=== PATIENT | male | born 1945 | race Caucasian/White ===

== ENCOUNTER 2019-04-07 10:37 | Inpatient (IN) | payer MEDICARE ==
--- NOTE | 2019-04-07 10:35 | US ---
EXAMINATION TYPE: US venous doppler duplex LE LT DATE OF EXAM: 04/07/2019 10:19 AM COMPARISON: NONE CLINICAL HISTORY: 73-year-old male R22.42 Swelling left lower limb. SIDE PERFORMED: Left TECHNIQUE: The lower extremity deep venous system is examined utilizing real time linear array sonog radha with graded compression, doppler sonography and color-flow sonography. FINDINGS: VESSELS IMAGED: External Iliac Vein (EIV) Common Femoral Vein Deep Femoral Vein Greater Saphenous Vein * Femoral Vein Popliteal Vein Small Saphenous Vein * Proximal Calf Veins (* superficial vessels) Left Leg: Positive for DVT starting at the confluence of the femoral and deep femoral vein and exten ding down through the proximal calf veins. Degreaser notes: Gave results to ERASMO Triana, who directed that the patient be sent to the ER. So wa lked patient to ER. IMPRESSION: Exam positive for left lower extremity DVT extending from the confluence of the superficial and deep femoral veins down into the proximal calf veins.
[2019-04-07] MEDS ORDERED: HEPARIN SODIUM,PORCINE 10,000 UNIT/ML 1 ML VIAL IV ONE (11:15)
[2019-04-07] MEDS ORDERED: SODIUM CHLORIDE 0.9% 1,000 ML IV ONE (11:15)
[2019-04-07] MEDS ORDERED: HEPARIN SODIUM,PORCINE 5,000 UNIT/ML 1 ML VIAL IV PRN (11:15)
--- NOTE | 2019-04-07 11:23 | ED ---
General Adult HPI - General Chief complaint: Extremity Problem,Nontraumatic Stated complaint: positive for DVT Time Seen by Provider: 04/07/19 10:58 Source: patient, RN notes reviewed, old records reviewed Mode of arrival: ambulatory Limitations: no limitations - History of Present Illness Initial comments: Patient is a 73-year-old male presents with his son. He presents today with complaints of left lower leg swelling. He was seen by his PCP, and was sent for an outpatient ultrasound. Patient was sent directly here after results with HER POSITIVE FOR DVT. HE IS A NONSMOKER. DENIES ANY TRAVEL HISTORY. PATIENT STATES THAT HE IS HAD A BLOOD CLOT BEFORE. HE DENIES ANY CHEST PAIN OR SHORTNESS OF BREATH. - Related Data Allergies Allergy/AdvReac Type Severity Reaction Status Date / Time No Known Allergies Allergy Verified 04/07/19 10:50 Review of Systems ROS Statement: Those systems with pertinent positive or pertinent negative responses have been documented in the HPI. ROS Other: All systems not noted in ROS Statement are negative. Past Medical History Past Medical History: Hyperlipidemia, Hypertension Additional Past Medical History / Comment(s): non compliant with medications Past Surgical History: Hernia Repair Past Psychological History: No Psychological Hx Reported Smoking Status: Never smoker Past Alcohol Use History: Rare Past Drug Use History: None Reported General Exam - General Exam Comments Initial Comments: Patient is a 73-year-old male. Alert and oriented. No distress. Limitations: no limitations General appearance: alert, in no apparent distress Head exam: Present: atraumatic, normocephalic, normal inspection Eye exam: Present: normal appearance, PERRL, EOMI. Absent: scleral icterus, conjunctival injection, periorbital swelling ENT exam: Present: normal exam, mucous membranes moist Neck exam: Present: normal inspection. Absent: tenderness, meningismus, lymphadenopathy Respiratory exam: Present: normal lung sounds bilaterally. Absent: respiratory distress, wheezes, rales, rhonchi, stridor Cardiovascular Exam: Present: regular rate, normal rhythm, normal heart sounds. Absent: systolic murmur, diastolic murmur, rubs, gallop, clicks GI/Abdominal exam: Present: soft, normal bowel sounds. Absent: distended, tenderness, guarding, rebound, rigid Extremities exam: Present: normal inspection, full ROM, normal capillary refill. Absent: tenderness, pedal edema, joint swelling, calf tenderness Left Knee exam: Present: normal inspection, full ROM Lower Leg exam: Present: normal inspection, swelling, palpable cord. Absent: tenderness Ankle exam: Present: normal inspection, full ROM Foot/Toe exam: Present: normal inspection, full ROM Neurovascular tendon exam: Present: no vascular compromise Gait: observed and normal Back exam: Present: normal inspection, full ROM Neurological exam: Present: alert, oriented X3, CN II-XII intact Course Vital Signs 04/07/19 04/07/19 10:47 12:14 Temperature 98.2 F Pulse Rate 85 Respiratory 18 16 Rate Blood Pressure 150/96 O2 Sat by Pulse 95 Oximetry Medical Decision Making - Medical Decision Making Patient is a 73-year-old male presents with 2 weeks of left sternal any swelling. No provoking factors including travel to be onset of DVT. He had an outpatient ultrasound is positive for extensive DVT from the superficial and deep femoral veins down to the proximal calf veins. Patient denies any chest pain or shortness of breath. His leg is twice the size of the right leg. He has a palpable dorsalis pedis pulse. Patient was initiated high intensity heparin. Examined the Patient with Dr. Parmar. Recommends with the extensive swelling of patient's leg a little bit the Patient started him on a high intensity heparin. Denisse Guthrie Discussed case with Dr. Wong. - Lab Data Result diagrams: 04/07/19 11:36 04/07/19 11:36 Lab Results 04/07/19 04/07/19 04/07/19 Range/Units 11:36 11:36 11:36 WBC 6.5 (3.8-10.6) k/uL RBC 5.04 (4.30-5.90) m/uL Hgb 15.6 (13.0-17.5) gm/dL Hct 47.6 (39.0-53.0) % MCV 94.4 (80.0-100.0) fL MCH 31.0 (25.0-35.0) pg MCHC 32.9 (31.0-37.0) g/dL RDW 12.5 (11.5-15.5) % Plt Count 233 (150-450) k/uL Neutrophils % 65 % Lymphocytes % 23 % Monocytes % 7 % Eosinophils % 2 % Basophils % 1 % Neutrophils # 4.2 (1.3-7.7) k/uL Lymphocytes # 1.5 (1.0-4.8) k/uL Monocytes # 0.5 (0-1.0) k/uL Eosinophils # 0.1 (0-0.7) k/uL Basophils # 0.1 (0-0.2) k/uL PT 10.4 (9.0-12.0) sec INR 1.0 (<1.2) APTT 25.5 (22.0-30.0) sec Sodium 137 (137-145) mmol/L Potassium 4.3 (3.5-5.1) mmol/L Chloride 102 (98-107) mmol/L Carbon Dioxide 24 (22-30) mmol/L Anion Gap 11 mmol/L BUN 23 H (9-20) mg/dL Creatinine 0.79 (0.66-1.25) mg/dL Est GFR (CKD-EPI)AfAm >90 (>60 ml/min/1.73 sqM) Est GFR (CKD-EPI)NonAf 89 (>60 ml/min/1.73 sqM) Glucose 210 H (74-99) mg/dL Calcium 9.5 (8.4-10.2) mg/dL - Radiology Data Radiology results: report reviewed Ultrasound is positive for DVT in left lower extremity setting from the confluence of the superficial and deep femoral veins down to the proximal calf veins. Disposition Clinical Impression: DVT (deep venous thrombosis), Left leg swelling Disposition: ADMITTED IP TO THIS [facility] Condition: Stable Is patient prescribed a controlled substance at d/c from ED?: No Referrals: Cory Vanegas MD [Primary Care Provider] - 1-2 days Time of Disposition: 12:25
[2019-04-07 11:56] LABS: Partial Thromboplastin Time 25.5 sec (22.0-30.0); Prothrombin Time 10.4 sec (9.0-12.0)
[2019-04-07 12:01] LABS: Basophils # (A) 0.1 k/uL (0-0.2); Basophils % (A) 1 %; Eosinophils # (A) 0.1 k/uL (0-0.7); Eosinophils % (A) 2 %; HCT 47.6 % (39.0-53.0); HGB 15.6 gm/dL (13.0-17.5); Lymphocytes # (A) 1.5 k/uL (1.0-4.8); Lymphocytes % (A) 23 %; MCHC 32.9 g/dL (31.0-37.0); MCV 94.4 fL (80.0-100.0); Mean Platelet Volume 7.1; Monocytes # (A) 0.5 k/uL (0-1.0); Monocytes % (A) 7 %; Neutrophils # (A) 4.2 k/uL (1.3-7.7); Neutrophils % (A) 65 %; Platelet Count 233 k/uL (150-450); RBC 5.04 m/uL (4.30-5.90); RDW 12.5 % (11.5-15.5); WBC 6.5 k/uL (3.8-10.6)
[2019-04-07] MEDS: HEPARIN SOD,PORK IN 0.45% NACL 25,000 UNIT in 0.45% NACL 1 250ML.BAG IV SCH (12:04)
[2019-04-07 12:06] LABS: African American GFR (CKD) >90 (>60 ml/min/1.73 sqM); Anion Gap 11 mmol/L; Blood Urea Nitrogen 23 mg/dL (9-20); Calcium 9.5 mg/dL (8.4-10.2); Carbon Dioxide 24 mmol/L (22-30); Chloride 102 mmol/L (98-107); Glucose 210 mg/dL (74-99); Potassium 4.3 mmol/L (3.5-5.1); Sodium 137 mmol/L (137-145)
[2019-04-07] MEDS ORDERED: IBUPROFEN 400 MG TAB PO PRN (12:26)
[2019-04-07] MEDS ORDERED: NALOXONE 0.4 MG/ML 1 ML VIAL IV PRN ×2 (12:26→13:43)
[2019-04-07] MEDS ORDERED: Acetaminophen-Codeine 300-30mg TAB PO PRN (12:26)
[2019-04-07] MEDS ORDERED: ONDANSETRON 4 MG/2 ML VIAL IVP PRN (12:26)
[2019-04-07] MEDS ORDERED: MORPHINE SULFATE 4 MG/ML SYRINGE IV PRN (12:26)
[2019-04-07] MEDS ORDERED: ACETAMINOPHEN TAB 325 MG TAB PO PRN (12:26)
[2019-04-07] MEDS ORDERED: hydrALAZINE HCL 20 MG/ML 1 ML VIAL IVP STA (13:31)
--- NOTE | 2019-04-07 13:47 | P.HPIM ---
History of Present Illness H&P Date: 04/07/19 Chief Complaint: The left leg swelling and pain The patient is a 73-year-old male with a past medical history of essential hypertension, type 2 diabetes reportedly diet controlled who presented to the ER via private vehicle with chief complaint of left lower extremity swelling and pain. Apparently the patient began having pain and swelling in the right knee approximately 2 weeks ago which has progressed down his leg with worsening swelling and some redness and pain within the last week, the patient denies any recent travel, denies recent surgeries, denies any history of cancer, he denies chest pain or shortness of breath. Apparently the patient previously had a DVT The patient reports he was recently prescribed medication for his blood pressure but he has yet to pick them up from [facility] pharmacy, the patient did make attempt to call his pharmacy to figure out what medication was prescribed but apparently the pharmacy did not receive the prescription, patient also attempted to contact his doctors office however it was closed today. In the ER the patient had a comprehensive workup including left venous Doppler that showed a positive DVT starting of the confluence of the femoral and deep femoral vein and extending down to the proximal calf veins. PT INR 10.4 and 1, serum sodium 137, serum potassium 4.3, bicarb 24, BUN 23 creatinine 0.79, blood sugar 210 the patient was started on IV heparin protocol recommended for admission Review of Systems Pertinent positives per HPI review of systems otherwise negative Past Medical History Past Medical History: Hyperlipidemia, Hypertension Additional Past Medical History / Comment(s): non compliant with medications Past Surgical History: Hernia Repair Past Psychological History: No Psychological Hx Reported Smoking Status: Never smoker Past Alcohol Use History: Rare Past Drug Use History: None Reported Medications and Allergies Home Medications Medication Instructions Recorded Confirmed Type No Known Home Medications 04/07/19 04/07/19 History Allergies Allergy/AdvReac Type Severity Reaction Status Date / Time No Known Allergies Allergy Verified 04/07/19 12:40 Physical Exam Vitals: Vital Signs Temp Pulse Resp BP Pulse Ox 04/07/19 12:48 97.3 F L 69 16 180/93 96 04/07/19 12:14 16 04/07/19 10:47 98.2 F 85 18 150/96 95 Intake and Output 04/06/19 04/07/19 04/07/19 22:59 06:59 14:59 Other: Weight 97.976 kg Constitutional: No acute distress, conversant, pleasant Eyes: Anicteric sclerae, moist conjunctiva, no lid-lag, PERRLA ENMT: NC/AT,Oropharynx clear, no erythema, exudates Neck:Supple, FROM, no masses, or JVD, No carotid bruits; No thyromegaly Lungs: Clear to auscultation, Clear to percussion, Normal respiratory effort, no accessory muscle use Cardiovascular: Heart regular in rate and rhythm, No murmurs, gallops, or rubs no peripheral edema Abdominal: Soft Nontender, nom distended, no guarding, no rebound or rigidity, Normoactive bowel sounds No hepatomegaly, No splenomegaly, No palpable mass No abdominal wall hernia noted Skin: Normal temperature, tone, texture, turgor, No induration No subcutaneous nodules, No rash, lesions, No ulcers Extremities: Right lower extremity calf size 16.5 inches, left lower extremity calf size 19 inches with noted swelling and erythema Psychiatric: Alert and oriented to person, place and time, Appropriate affect Intact judgement Neuro: Muscles Strength 5/5 in all 4 extremities, Sensation to light touch grossly present throughout, Cranial nerves II-XII grossly intact. No focal sensory deficits Results CBC & Chem 7: 04/07/19 11:36 04/07/19 11:36 Labs: Abnormal Lab Results - Last 24 Hours (Table) 04/07/19 Range/Units 11:36 BUN 23 H (9-20) mg/dL Glucose 210 H (74-99) mg/dL Assessment and Plan (1) Recurrent deep vein thrombosis (DVT) Current Visit: Yes Status: Acute Code(s): I82.409 - ACUTE EMBOLISM AND THOMBOS UNSP DEEP VN UNSP LOWER EXTREMITY SNOMED Code(s): 071042194 (2) Essential hypertension Current Visit: Yes Status: Acute Code(s): I10 - ESSENTIAL (PRIMARY) HYPERTENSION SNOMED Code(s): 30379095 (3) Type 2 diabetes mellitus with hyperglycemia Current Visit: Yes Status: Acute Code(s): E11.65 - TYPE 2 DIABETES MELLITUS WITH HYPERGLYCEMIA SNOMED Code(s): 641789049965417 (4) Medical non-compliance Current Visit: Yes Status: Acute Code(s): Z91.19 - PATIENT'S NONCOMPLIANCE W OTH MEDICAL TREATMENT AND REGIMEN SNOMED Code(s): 883143714 Plan: Patient is placed on observation anticipated less than 2 midnight stay with acute recurrent left lower extremity DVT that is apparently unprovoked hematology consulted for further workup the patient is continued on heparin per protocol. Hopefully the patient be transitioned to DOAC within the next 24 hours. Patient's blood pressures also noted to be elevated, he is given a dose of hydralazine and started on chlorthalidone. A1c is also ordered Accu-Cheks with correctional scale coverage in place . We'll continue to monitor his clinical course. CODE STATUS: Full code Anticipated discharge: 1-2 days Discussed plan of care with: Patient
[2019-04-07] MEDS: CHLORTHALIDONE 25 MG TAB PO SCH (17:14)
[2019-04-07 17:33] LABS: Glucose,Whole Blood 221 mg/dL (75-99)
[2019-04-07 17:44] LABS: Appearance,Urine Clear (Clear); Bilirubin,Urine Negative (Negative); Blood,Urine Negative (Negative); Color,Urine Yellow; Glucose,Urine (UA) 4+ (Negative); Ketones,Urine Trace (Negative); Leukocyte Esterase,Urine Negative (Negative); Nitrite,Urine Negative (Negative); PH, Urine 5.5 (5.0-8.0); Protein,Urine Negative (Negative); Specific Gravity,Urine 1.016 (1.001-1.035); Urobilinogen,Urine <2.0 mg/dL (<2.0)
[2019-04-07 20:36] LABS: Glucose,Whole Blood 180 mg/dL (75-99)
[2019-04-07 22:23] LABS: Hemoglobin A1C 10.5 % (4.0-6.0)
--- NOTE | 2019-04-07 23:13 | P.CONS ---
History of Present Illness - Reason for Consult Consult date: 04/07/19 unprovoked DVT Requesting physician: Hubert Townsend - Chief Complaint Left Lower Leg Swelling - History of Present Illness Mr. Leyva is a pleasant 73 year old male patient who has a known history of DM, HTN, and arthritis who presents to emergency with complains of pain and swelling in his left lower extremity noticed approximately 3-4 days prior. He denies any trauma, long travels, or sedetary lifestyle. He denies a personal history of cancer. Denies any recent weight gain or loss, no changes in bowels or bladder,denies shortness of breath or chest pain. He denies any prior thrombolic events, no known family history of thrombolic events. He has had only one colonoscopy, denies regular preventative doctor visits. During evaluation in emergency a lower extremity doppler revealed LEFT lower extremity DVT. He was started on heparin drip and admitted. It is unclear if he has had a prior thrombus, per my discussion today he denied any prior DVT, although medical chart states he has admitted to prior DVT. We discussed further evaluation for etiology of DVT, a written prescition for hypercaguable work-up was given for him to obtain at discharge. He will be discharged on DOAC if approved under insurance (unclear if he has coverage for medications, will need clarification of this prior to dicharge and will need to ensure patient has anticoagulation therapy filled prior to discharge. Review of Systems A 14 point review of systems assessed and completed and all negative except HPI Past Medical History Past Medical History: Hyperlipidemia, Hypertension Additional Past Medical History / Comment(s): non compliant with medications Past Surgical History: Hernia Repair Past Psychological History: No Psychological Hx Reported Smoking Status: Never smoker Past Alcohol Use History: Rare Past Drug Use History: None Reported - Past Family History Sister(s) Family Medical History: Diabetes Mellitus Medications and Allergies Home Medications Medication Instructions Recorded Confirmed Type No Known Home Medications 04/07/19 04/07/19 History Allergies Allergy/AdvReac Type Severity Reaction Status Date / Time No Known Allergies Allergy Verified 04/07/19 12:40 Physical Exam Vitals: Vital Signs Temp Pulse Resp BP Pulse Ox 04/07/19 15:00 97.6 F 86 16 150/75 97 04/07/19 14:00 72 04/07/19 12:48 97.3 F L 69 16 180/93 96 04/07/19 12:14 16 04/07/19 10:47 98.2 F 85 18 150/96 95 Intake and Output 04/07/19 04/07/19 04/07/19 06:59 14:59 22:59 Other: Weight 97.976 kg Gen: Alert and oriented, NAD Head: NCNTNeck: Supple Heart: Tachy, reg Lungs: CTA no increased effort Abd: Soft, NDNT Extremities: LLE Edema Neuro: no sensory or motor deficits Results CBC & Chem 7: 04/07/19 11:36 04/07/19 11:36 Labs: Abnormal Lab Results - Last 24 Hours (Table) 04/07/19 Range/Units 11:36 BUN 23 H (9-20) mg/dL Glucose 210 H (74-99) mg/dL Venous US: report reviewed Assessment and Plan Plan: Assessment and Recommendations: NEw Acute Unprovoked DVT LLE: - Hypercoaguable work-up RX provided to patient to obtain after discharge, will follow-up in office - Unclear if first or second event, ? to patient as a good historian - DOAC at discharge if able to obtain, he is anxious for discharge as daughter is visiting from out of state. Education on the importance of anticagulation therapy prior to discharge. - Follow-up with Dr. Melendez in 3-4 weeks to review length of recommended therapy and hypercoag evaluation - Re-education and recommendations for adherence to preventative medicine check ups
[2019-04-08 02:24] LABS: Basophils # (A) 0.1 k/uL (0-0.2); Basophils % (A) 1 %; Eosinophils # (A) 0.4 k/uL (0-0.7); Eosinophils % (A) 6 %; HCT 42.4 % (39.0-53.0); HGB 13.5 gm/dL (13.0-17.5); Lymphocytes # (A) 2.5 k/uL (1.0-4.8); Lymphocytes % (A) 35 %; MCH 30.3 pg (25.0-35.0); MCHC 31.9 g/dL (31.0-37.0); Monocytes # (A) 0.5 k/uL (0-1.0); Monocytes % (A) 7 %; Neutrophils # (A) 3.5 k/uL (1.3-7.7); Neutrophils % (A) 48 %; Platelet Count 230 k/uL (150-450); RBC 4.46 m/uL (4.30-5.90); RDW 12.7 % (11.5-15.5); WBC 7.2 k/uL (3.8-10.6)
[2019-04-08 03:01] LABS: ALT 29 U/L (21-72); AST 27 U/L (17-59); African American GFR (CKD) >90 (>60 ml/min/1.73 sqM); Albumin 3.7 g/dL (3.5-5.0); Alkaline Phosphatase 58 U/L (38-126); Anion Gap 8 mmol/L; Blood Urea Nitrogen 20 mg/dL (9-20); Calcium 8.9 mg/dL (8.4-10.2); Carbon Dioxide 23 mmol/L (22-30); Chloride 104 mmol/L (98-107); Glucose 183 mg/dL (74-99); Sodium 135 mmol/L (137-145); Total Bilirubin 0.6 mg/dL (0.2-1.3); Total Protein 6.5 g/dL (6.3-8.2)
[2019-04-08] MEDS: HEPARIN SOD,PORK IN 0.45% NACL 25,000 UNIT in 0.45% NACL 1 250ML.BAG IV SCH (03:52)
[2019-04-08 06:13] VITALS: BP 146/81; PULSE 74; RESP 18; TEMP 97.8
[2019-04-08 07:07] LABS: Glucose,Whole Blood 192 mg/dL (75-99)
[2019-04-08] MEDS ORDERED: INSULIN ASPART (NovoLOG) 100 UNIT/ML VIAL SQ SCH (07:30)
[2019-04-08] MEDS: CHLORTHALIDONE 25 MG TAB PO SCH (07:51)
[2019-04-08] MEDS ORDERED: PANTOPRAZOLE 40 MG/10 ML VIAL IV SCH (09:00)
[2019-04-08] MEDS ORDERED: APIXABAN 5 MG TAB PO SCH (09:00)
[2019-04-08] MEDS ORDERED: LISINOPRIL 20 MG TAB PO SCH (09:00)
--- NOTE | 2019-04-08 10:56 | P.DS ---
Providers Date of admission: 04/07/19 13:43 Expected date of discharge: 04/08/19 Attending physician: Hubert Townsend MD Consults: 04/07/19 13:17 Consult Physician Routine Consulting Provider: Bobby Mcclellan Consult Reason/Comments: unprovoked DVT Do you want consulting provider notified?: Yes Primary care physician: Cory Vanegas - Discharge Diagnosis(es) (1) Deep vein thrombosis (DVT) of left lower extremity Current Visit: Yes Status: Acute (2) Essential hypertension Current Visit: Yes Status: Acute (3) Type 2 diabetes mellitus with hyperglycemia Current Visit: Yes Status: Acute (4) Medical non-compliance Current Visit: Yes Status: Acute Hospital Course: The patient is a 73-year-old male that was admitted with acute left lower extremity DVT after presenting with left leg swelling and pain, left lower extremity venous Doppler was positive For DVT extending from the confluence of the superficial and deep femoral veins down to the proximal calf veins. The patient was started on heparin drip per protocol and hematology was consulted for further workup of the unprovoked DVT. The patient was transient to direct oral anticoagulation with ELiquis. The patient reported a history of type 2 diabetes for quite some time and informed me that he was attempting diet and exercise to manage his diabetes despite recommendations [facility] . A1c here was 10.1 . Patient was told to be hyperglycemic. The patient appears to have a medical history of noncompliance as he also had not started his blood pressure medications. The patient reports previously having diabetic education and requested oral diabetic regimen despite my recommendations for subcutaneous insulin and reported that he would not be able to take SQ insulin at this time. The patient reported having a glucometer and testing supplies. He was given correctional scale insulin coverage here and subsequently discharged home on Janumet 100/1000 mg PO BID. the patient is instructed to test 4 times a day and bring his numbers to his primary care physician. He was started on chlorthalidone and lisinopril for his blood pressure. The patient was given an order for hypercoagulable workup by oncology and was subsequently discharged home in stable condition with instructions to follow-up with his PCP in 2-5 days. This discharge process took approximately 35 minutes focused exam extremities : Extremities: Right lower extremity calf size 16.5 inches, left lower extremity calf size 19 inches with noted swelling and erythema Patient Condition at Discharge: Stable Plan - Discharge Summary Discharge Rx Participant: No New Discharge Prescriptions: New Apixaban [Eliquis] 5 mg PO BID #60 tab Chlorthalidone [Hygroton] 25 mg PO DAILY #30 tab Lisinopril [Zestril] 40 mg PO DAILY #30 tab sitaGLIPtin PHOS/metFORMIN HCL [Janumet Xr 100-1,000 mg Tablet] 1 each PO BID #60 tbmp.24hr Discharge Medication List Apixaban [Eliquis] 5 mg PO BID #60 tab 04/08/19 [Rx] Chlorthalidone [Hygroton] 25 mg PO DAILY #30 tab 04/08/19 [Rx] Lisinopril [Zestril] 40 mg PO DAILY #30 tab 04/08/19 [Rx] sitaGLIPtin PHOS/metFORMIN HCL [Janumet Xr 100-1,000 mg Tablet] 1 each PO BID #60 tbmp.24hr 04/08/19 [Rx] Follow up Appointment(s)/Referral(s): Cory Vanegas MD [Primary Care Provider] - 1-2 days Patient Instructions/Handouts: Deep Vein Thrombosis (DC), Type 2 Diabetes in Adults: New Diagnosis (DC) Discharge Disposition: HOME SELF-CARE
== END 2019-04-08 11:02 | disposition home or self-care (01) | DRG 301 ==
LOC: EC 10:37 → OBSVTOIN 13:43 → UNDOADMIN 13:43 → INTOOBSV 13:43 → 4MS4W 13:43 → UNDODISOB 04-08 11:02
PROVIDERS: ADMIT Family Medicine; ATTEND Family Medicine
DX: I82.412 Acute embolism and thrombosis of left femoral vein (principal); E11.65 Type 2 diabetes mellitus with hyperglycemia; E78.5 Hyperlipidemia, unspecified; I10 Essential (primary) hypertension; Z83.3 Family history of diabetes mellitus; Z86.718 Personal history of other venous thrombosis and embolism; Z91.19 Patient's noncompliance with other medical treatment and regimen; T50.906A Underdosing of unspecified drugs, medicaments and biological substances, initial encounter; Z91.120 Patient's intentional underdosing of medication regimen due to financial hardship; M19.90 Unspecified osteoarthritis, unspecified site
CPT/HCPCS: 36415; 80048; 80053; 81003; 83036; 85025; 85610; 85730; 96365; 96366; 96375; 96376; 99284

== ENCOUNTER → 2019-04-21 | Outpatient (CLI) | payer MEDICARE ==
[2019-04-21 17:40] LABS: Cardiolipin Ab IgA Interp NEGATIVE (NEGATIVE); Cardiolipin Ab IgG Interp NEGATIVE (NEGATIVE); Cardiolipin Ab IgM Interp NEGATIVE (NEGATIVE); Cardiolipin IgA Antibody 0.9 U/mL; Cardiolipin IgM Antibody 0.5 U/mL
== END | disposition home or self-care (01) ==
LOC: LABWHC1 08:22
PROVIDERS: ATTEND Nurse Practitioner Adult Health
DX: D68.51 Activated protein C resistance (principal); D68.52 Prothrombin gene mutation
CPT/HCPCS: 36415; 85300; 85303; 85306; 85613; 85730; 86147

== ENCOUNTER 2025-01-10 13:28 | Emergency (ER) | payer OTHER, MEDICARE ==
[2025-01-10 13:35] VITALS: TEMP 97.5
[2025-01-10 14:09] VITALS: BP 162/84; PULSE 91; RESP 20
--- NOTE | 2025-01-10 14:09 | ED ---
Extremity Problem HPI - General Chief complaint: Extremity Problem,Nontraumatic Stated complaint: L leg swelling Time Seen by Provider: 01/10/25 14:08 Source: patient Mode of arrival: ambulatory Limitations: no limitations - History of Present Illness Initial comments: 79-year-old male sent from outpatient ultrasound for evaluation of abnormal ultrasound. Patient reports for about a week he has noticed swelling to his left lower extremity. He followed up with his PCP who ordered ultrasound which was completed today. Patient was sent from outpatient ultrasound for positive DVT to left lower extremity. Patient does report a history of DVTs but is not currently on a blood thinner. He is unsure which blood thinner he was on in the past. He does take a baby aspirin daily. He denies any recent travel or smoking history. He denies any chest pain, shortness of breath or palpitations. No injuries to left lower extremity. No other complaints. - Related Data Previous Rx's Medication Instructions Recorded Apixaban [Eliquis] 5 mg PO BID #60 tab 04/08/19 Chlorthalidone [Hygroton] 25 mg PO DAILY #30 tab 04/08/19 glipiZIDE XL [Glucotrol XL] 10 mg PO DAILY #30 tab 04/08/19 lisinopriL [Zestril] 40 mg PO DAILY #30 tab 04/08/19 metFORMIN HCL [Glucophage] 1,000 mg PO BID #60 tab 04/08/19 Rivaroxaban InitiationDose-VTE 15 mg PO BID 21 Days #42 tab 01/10/25 [Xarelto Initiation Dosing for VTE Treatment] Allergies Allergy/AdvReac Type Severity Reaction Status Date / Time No Known Allergies Allergy Verified 04/07/19 12:40 Review of Systems ROS Statement: Those systems with pertinent positive or pertinent negative responses have been documented in the HPI. ROS Other: All systems not noted in ROS Statement are negative. Past Medical History Past Medical History: Hyperlipidemia, Hypertension Additional Past Medical History / Comment(s): non compliant with medications History of Any Multi-Drug Resistant Organisms: None Reported Past Surgical History: Hernia Repair Past Anesthesia/Blood Transfusion Reactions: No Reported Reaction Past Psychological History: No Psychological Hx Reported Smoking Status: Never smoker Past Alcohol Use History: Rare Past Drug Use History: None Reported - Past Family History Sister(s) Family Medical History: Diabetes Mellitus General Exam Limitations: no limitations General appearance: alert, in no apparent distress Respiratory exam: Present: normal lung sounds bilaterally. Absent: respiratory distress, wheezes, rales, rhonchi, stridor Cardiovascular Exam: Present: regular rate, normal rhythm, normal heart sounds. Absent: systolic murmur, diastolic murmur, rubs, gallop, clicks Extremities exam: Present: normal inspection, full ROM, normal capillary refill, calf tenderness (left) Neurological exam: Present: alert, oriented X3, CN II-XII intact Skin exam: Present: warm, dry, intact, normal color. Absent: rash Course Vital Signs 01/10/25 01/10/25 13:32 14:08 Temperature 97.5 F L Pulse Rate 105 H 91 Respiratory 18 20 Rate Blood Pressure 162/84 O2 Sat by Pulse 96 Oximetry Medical Decision Making - Medical Decision Making Was pt. sent in by a medical professional or institution (, [place], [employer] [facility], urgent care, hospital, or skilled nursing...) When possible be specific @ -Patient sent by outpatient ultrasound for evaluation of left lower extremity DVT. Did you speak to anyone other than the patient for history (EMS, parent, family, police, friend...)? What history was obtained from this source @ -Patient's , bedside, aiding in HPI and past medical history. Did you review nursing and triage notes (agree or disagree)? Why? @ -I reviewed and agree with nursing and triage notes Were old charts reviewed (outside hosp., previous admission, EMS record, old EKG, old radiological studies, urgent care reports/EKG's, skilled nursing records)? Report findings @ -Ultrasound venous Doppler left lower extremity completed on 01 10 25 showing a DVT from CFV to upper calf veins. Differential Diagnosis (chest pain, altered mental status, abdominal pain women, abdominal pain men, vaginal bleeding, weakness, fever, dyspnea, syncope, headache, dizziness, GI bleed, back pain, seizure, CVA, palpatations, mental health, musculoskeletal)? @ -Differential Musculoskeletal :Muscular strain, contusion, ligament sprain, fracture, arthritis, septic arthritis, bursitis, cellulitis, muscle spasm, nerve compression, DVT, arterial occlusion, herpes zoster, electrolyte abnormality, tumor.... This is not meant to be in all inclusive list EKG interpreted by me (3pts min.). @ -None done X-rays interpreted by me (1pt min.). @ -None done CT interpreted by me (1pt min.). @ -None done U/S interpreted by me (1pt. min.). @ -None done What testing was considered but not performed or refused? (CT, X-rays, U/S, labs)? Why? @ -None What meds were considered but not given or refused? Why? @ -Basic laboratory studies refused by patient Did you discuss the management of the patient with other professionals (professionals i.e. , [place], [employer] [facility], lab, RT, psych nurse, child welfare social worker, warehouse sorter, teacher, patient transport officer, [employer]er shoe [employer])? Give summary @ -Case management provided xarelto coupon. Was smoking cessation discussed for >3mins.? @ -No Was critical care preformed (if so, how long)? @ -No Were there social determinants of health that impacted care today? How? (Homelessness, low income, unemployed, alcoholism, drug addiction, transportation, low edu. Level, literacy, decrease access to med. care, care home, rehab)? @ -No Was there de-escalation of care discussed even if they declined (Discuss DNR or withdrawal of care, Hospice)? DNR status @ -No What co-morbidities impacted this encounter? (DM, HTN, Smoking, COPD, CAD, Cancer, CVA, ARF, Chemo, Hep., AIDS, mental health diagnosis, sleep apnea, morbid obesity)? @ -None Was patient admitted / discharged? Hospital course, mention meds given and route, prescriptions, significant lab abnormalities, going to OR and other per tinent info. @ -Discharge. 79-year-old male presented the ER for evaluation of abnormal ultrasound. Upon rooming, history and physical exam completed. Vitals within acceptable limits. Patient in no signs of acute distress nontoxic-appearing. Left lower extremity is neurovascularly intact. Positive left Ilana signs. Ultrasound reviewed from 01-10-25 show any DVT of left lower extremity for which patient will be started on Eliquis, coupon provided. Patient was discharged on Eliquis but return to the emergency department as medication was too expensive. As patient was on Eliquis in the past he is no longer eligible for coupon. 21- day course of Xarelto was then prescribed. Case management discussed with patient and provided Xarelto coupon. Strict return parameters were discussed with patient prior to initial discharge. I advised close follow-up with PCP for repeat medication refills and further evaluation. Patient verbally expressed understanding agreement with care plan. Case discussed with ED attending, Dr. Villalta. Undiagnosed new problem with uncertain prognosis? @ -No Drug Therapy requiring intensive monitoring for toxicity (Heparin, Nitro, I nsulin, Cardizem)? @ -No Were any procedures done? @ -No Diagnosis/symptom? @ -DVT left lower extremity Acute, or Chronic, or Acute on Chronic? @ -Acute Uncomplicated (without systemic symptoms) or Complicated (systemic symptoms)? @ -Uncomplicated Side effects of treatment? @ -No Exacerbation, Progression, or Severe Exacerbation? @ -No Poses a threat to life or bodily function? How? (Chest pain, [place], [place], pneumonia, PE, COPD, DKA, ARF, appy, cholecystitis, CVA, Diverticulitis, Homicidal, Suicidal, threat to staff... and all critical care pts) @ -DVTs can lead to PEs if untreated. - Radiology Data Radiology results: report reviewed Disposition Clinical Impression: Deep vein thrombosis (DVT) of lower extremity Disposition: HOME SELF-CARE Condition: Stable Instructions (If sedation given, give patient instructions): Deep Vein Thrombosis (DC) Additional Instructions: Take Eliquis as prescribed, you received the first dose in the emergency department. Follow-up closely with PCP. Return to the ER for any new or worsening concerns including but not limited to chest pain, shortness of breath or palpitations. Prescriptions: Rivaroxaban InitiationDose-VTE [Xarelto Initiation Dosing for VTE Treatment] 15 mg PO BID 21 Days #42 tab Is patient prescribed a controlled substance at d/c from ED?: No Referrals: Anthony Francois DO [Primary Care Provider] - 1-2 days Time of Disposition: 14:18
[2025-01-10] MEDS: APIXABAN 5 MG TAB PO STA (14:21)
== END 2025-01-10 14:27 | disposition home or self-care (01) ==
LOC: EC 13:28
DX: I82.402 Acute embolism and thrombosis of unspecified deep veins of left lower extremity (principal)
CPT/HCPCS: 99283

== ENCOUNTER → 2025-01-10 | Outpatient (CLI) | payer MEDICARE, OTHER ==
--- NOTE | 2025-01-10 13:43 | US ---
EXAMINATION TYPE: US venous doppler duplex LE LT DATE OF EXAM: 01/10/2025 1:13 PM COMPARISON: 04/07/2019 CLINICAL INDICATION: Male, 79 years old with history of R22.42 LOCALIZED SWELLING, MASS AND LUMP, LEF T LOW; Left leg swelling. Hx DVT 2019, on aspirin, Pain TECHNIQUE: The lower extremity deep venous system is examined utilizing real time linear array sonog radha with graded compression, color doppler sonography, and spectral doppler. SIDE PERFORMED: Left FINDINGS: VESSELS IMAGED: Common Femoral Vein Deep Femoral Vein Greater Saphenous Vein * Femoral Vein Popliteal Vein Small Saphenous Vein * Proximal Calf Veins Posterior tibial veins (* superficial vessels) Left Leg: Positive for DVT from CFV to upper calf veins with thready flow, internal echoes seen. On e PTV noncompressible IMPRESSION: Exam positive for DVT left lower extremity extending from the common femoral vein into the upper calf . Some thready flow is noted. This may represent extensive chronic DVT. However, posterior tibial vei ns are noncompressible. More acute DVT here can be considered. [facility], , 01/10/2025 1:40 PM
== END | disposition home or self-care (01) ==
LOC: RADUSWWP 12:44
PROVIDERS: ATTEND Family Medicine
DX: I82.412 Acute embolism and thrombosis of left femoral vein (principal)